=== PATIENT | female | born 1975 | race Hispanic/Latino ===

== ENCOUNTER 2020-04-08 21:15 | Emergency (ER) | payer SELFPAY ==
[2020-04-08] MEDS ORDERED: KETOROLAC TROMETHAMINE 60 MG/2 ML VIAL ONE (21:44)
[2020-04-08] MEDS ORDERED: HYDROCODONE/ACETAMINOPHEN 10/325 MG TAB ONE (21:45)
== END 2020-04-08 22:28 | disposition home or self-care (01) ==
LOC: EDH 21:15
DX: S82.61XA Displaced fracture of lateral malleolus of right fibula, initial encounter for closed fracture (principal); X58.XXXA Exposure to other specified factors, initial encounter; Y93.02 Activity, running; Y92.89 Other specified places as the place of occurrence of the external cause; Y99.8 Other external cause status
CPT/HCPCS: 29515; 73610; 96372; 99283; J1885